=== PATIENT | male | born 1980 | race Caucasian/White ===

== ENCOUNTER → 2017-10-13 | Emergency (ER) | payer OTHER ==
[~2017-10-13] VITALS: Ht 170.2 cm; Wt 122.5 kg
[~2017-10-13] MED LIST: AIRBORNE EFFER1 EACH PO; KETO10TA2 PO; LEVSIN/SL0.125 MG PO; OSEL75CA PO; PEPCID40 MG PO; TESSALON PERLE100 MG PO; ZOFRAN4 MG PO
== END | disposition home or self-care (01) ==
LOC: ER 21:01
DX: J11.1 Influenza due to unidentified influenza virus with other respiratory manifestations (principal); B34.9 Viral infection, unspecified

== ENCOUNTER 2019-01-12 16:32 | Emergency (ER) | payer OTHER ==
[~2019-01-12] VITALS: Ht 172.7 cm; Wt 127.0 kg
== END 2019-01-12 20:57 | disposition home or self-care (01) ==
LOC: ER 16:32
DX: J06.9 Acute upper respiratory infection, unspecified (principal)